=== PATIENT | female | born 1955 | race Two or more races ===

== ENCOUNTER 2020-05-11 11:37 | Emergency (ER) | payer OTHER ==
[~2020-05-11] VITALS: Ht 165.1 cm; Wt 86.2 kg
[~2020-05-11 11:37] MED LIST: GILTUSS HC SYR473 ML PO; METFORMIN
[2020-05-11] MEDS ORDERED: COZAAR100 MG PO (11:50)
[2020-05-11] MEDS ORDERED: GLIMEPIRIDE4 MG PO (11:50)
[2020-05-11] MEDS ORDERED: HYDROCHLOROTH12.5 MG PO (17:08)
== END 2020-05-11 17:33 | disposition home or self-care (01) ==
LOC: ER 11:37
DX: I16.0 Hypertensive urgency (principal); I10 Essential (primary) hypertension; Z03.818 Encounter for observation for suspected exposure to other biological agents ruled out; R07.89 Other chest pain

== ENCOUNTER → 2021-03-14 | Emergency (ER) | payer OTHER ==
[~2021-03-14] VITALS: Ht 165.1 cm; Wt 90.7 kg
[~2021-03-14] MED LIST changes: +COZAAR100 MG PO; +GLIMEPIRIDE4 MG PO; +HYDROCHLOROTH12.5 MG PO
== END | disposition home or self-care (01) ==
LOC: ER 19:49 → CPU-OBS 20:17
DX: I24.9 Acute ischemic heart disease, unspecified (principal); I10 Essential (primary) hypertension; Z11.52 Encounter for screening for COVID-19